=== PATIENT | female | born 2000 | race Caucasian/White ===

== ENCOUNTER 2024-10-29 17:33 | Emergency (ER) | payer OTHER ==
[~2024-10-29] VITALS: Ht 170.2 cm; Wt 99.8 kg
[2024-10-29 17:37] VITALS: BP 157/79; PULSE 95; RESP 18; TEMP 37.2; O2SAT 100; O2SAT 98
== END 2024-10-29 21:00 | disposition left against medical advice (07) ==
LOC: ER 17:33
DX: O20.9 Hemorrhage in early pregnancy, unspecified (principal); Z53.21 Procedure and treatment not carried out due to patient leaving prior to being seen by health care provider; Z3A.01 Less than 8 weeks gestation of pregnancy